=== PATIENT | female | born 1980 | race Caucasian/White ===

== ENCOUNTER 2018-10-26 21:12 | Emergency (ER) | payer MEDICAID ==
[~2018-10-26] VITALS: Ht 175.3 cm; Wt 88.0 kg
[2018-10-26 21:28] VITALS: BP_SYST 135
[2018-10-27 00:04] VITALS: BP_SYST 121
== END 2018-10-27 00:04 | disposition home or self-care (01) ==
LOC: SED 21:12
DX: R07.89 Other chest pain (principal); R05 Cough; R03.0 Elevated blood-pressure reading, without diagnosis of hypertension
CPT/HCPCS: 99283